=== PATIENT | male | born 1970 | race Caucasian/White ===

== ENCOUNTER 2018-07-01 18:29 | Observation (INO) | payer OTHER ==
[~2018-07-01] VITALS: Ht 193 cm; Wt 113.4 kg
--- NOTE | ~2018-07-01 | EC ---
PATIENT:ALEXANDRA LINARES DATE OF SERVICE: 07/01/18 SEX: M MEDICAL RECORD: [id number] DATE OF : [birth year] LOCATION:D. D.213 AGE OF PATIENT: 48 ADMISSION DATE: 07/01/18 REFERRING PHYSICIAN: INTERPRETING PHYSICIAN: DANIELA CABRAL MD ECHOCARDIOGRAM REPORT ECHO CHARGES 4 ECHO COMPLETE Date: 07/02/18 CLINICAL DIAGNOSIS: SYNCOPE ECHOCARDIOGRAPHIC MEASUREMENTS (adult normal given) AC root (d.<3.7cm) 3.3 cm LV Septum d (<1.2 cm> 1.3 cm Valve Excursion 2.3 cm LV Septum (systole) 1.7 cm Left Atria (s.<4.0cm> 3.6 cm LVPW d(<1.2cm) 1.3 cm RV (d.<2.3cm) 3.1 cm LVPW (sytole) 2.0 cm LV diastole(<5.6CM) 5.2 cm MV E-F(>70mm/sec) cm LV systole 3.4 cm LVOT Diameter 2.0 cm MV exc.(>10mm) cm Est.ejection fraction (50-75%) % DOPPLER: LVIT cm/sec A 48.0 cm/sec E 76.0 cm/sec LA cm/sec RVSP 48.1 mmHg LVOT 119 cm/sec AOP1/2T m/s Asc. Ao 136 cm/sec RVOT 59.0 cm/sec RA cm/sec PA 98.0 cm/sec AV Gradient Peak 7.4 mmHg AV Mean 3.8 mmHg AV Area 2.7 cm MV Gradient Peak 3.6 mmHg MV Mean 1.5 mmHg MV Area cm COMMENTS: Electrical Test Engineer: 1 KATHRYN GUADALUPE Option Trader: 2 Dr. Russlel TAPE# PACS Pericardial Effusion N DATE OF SERVICE: 07/02/2018 PROCEDURE: Echocardiogram. FINDINGS: 1. Left ventricular chamber size is within normal limits. Left ventricular systolic function is normal. Overall ejection fraction estimated at 55% to 60%. 2. Left atrium is within normal limits at 3.6 cm. Right atrium and right ventricle chamber sizes are mildly dilated. 3. Valvular structures have normal structure and motion. ECHOCARDIOGRAM REPORT [id number] ALEXANDRA LINARES 4. Doppler interrogation reveals trace mitral regurgitation, moderate tricuspid regurgitation, no other valvular insufficiency or stenosis. Pulmonary systolic pressure is mildly elevated, estimated at 48 mmHg. 5. No evidence of pericardial effusion or left ventricular thrombus. TRANSINT:[id number] Voice Confirmation ID: [id number] DOCUMENT ID: [id number] DANIELA CABRAL MD at 1856 CC: [id number] DICTATION DATE: 07/02/18 1415 SLUBBER FRAME CHANGER: 07/02/18 1552 ADM IN [facility] [address] [id number]
--- NOTE | ~2018-07-01 | MORECARE ---
CASE MANAGEMENT DISCHARGE SUMMARY PATIENT: ALEXANDRA LINARES UNIT: [id number] ADM DATE: 07/01/18 AGE: 48 : 72 SEX: M ROOM/BED: D.2137 AUTHOR: JENNI ERNANDEZ PHYSICIAN: REFERRING PHYSICIAN: ANDREWS ROCKWELL MD DATE OF SERVICE: 07/05/18 Discharge Plan Patient Name: ALEXANDRA LINARES Facility: [facility]:[place]lie : 1970 Planned Disposition: Home Anticipated Discharge Date: 07/03/18 Discharge Date: 07/03/2018 Expected LOS: 2 Initial Reviewer: [id number] Initial Review Date: 07/05/2018 Generated: 07/05/18 10:48 am Patient Name: ALEXANDRA LINARES Page [id number] at 0948 All edits/amendments must be made on the electronic document DICTATION DATE: 07/05/18946 SIGN POSTER: DEJUAN 07/05/18946 RPT#: [id number] DC DATE:07/03/18 STATUS: DIS IN [facility] [address] [place] [address] END OF REPORT
[2018-07-01 19:19] LABS: BASOPHILS 0.3 % (0-2); EOSINOPHILS 1.6 % (0-7); HEMOGLOBIN 14.4 g/dL (13.5-17.5); IMMATURE GRANULOCYTES 0.3 % (0-5); LYMPHOCYTES 21.3 % (15-50); MCH 28.8 pg (26.0-34.0); MCHC 33.5 g/dL (31.0-37.0); MEAN PLATELET VOLUME 10.5 fL (7.4-10.4); MONOCYTES 9.7 % (2-11); NEUTROPHILS 66.8 % (40-80); PLATELET COUNT 217 10x3/uL (130-400); RDW 13.1 % (11.5-14.5); WBC 8.6 10x3/uL (4.8-10.8)
[2018-07-01 19:48] LABS: ALBUMIN 3.4 g/dL (3.4-5.0); ALKALINE PHOSPHATASE 65 U/L (46-116); ALT (SGPT) 29 U/L (10-68); BILIRUBIN - TOTAL 2.03 mg/dL (0.2-1.3); CALC OSMOLALITY 265 mosm/kg (275-300); CALCIUM 8.3 mg/dL (8.5-10.1); CARBON DIOXIDE 25.7 mmol/L (21.0-32.0); CHLORIDE - SERUM 99 mmol/L (98-107); CREATININE - SERUM 1.4 mg/dL (0.6-1.3); GLUCOSE 113 mg/dL (74-106); POTASSIUM - SERUM 3.6 mmol/L (3.5-5.1); PROTEIN - SERUM 7.5 g/dL (6.4-8.2); SODIUM 132 mmol/L (136-145); UREA NITROGEN 13 mg/dL (7-18); eGFR NON AFRICAN AMERICAN 58 mL/min (90-120)
[2018-07-01 19:54] LABS: APTT 25.8 SECONDS (22.8-39.4); INR 1.02 (0.85-1.17); PROTIME 13.1 SECONDS (11.6-15.0)
[2018-07-01 19:58] LABS: CKMB 2.4 U/L (0.0-3.6); CREATINE KINASE 556 UL (21-232); TROPONIN-I < 0.017 ng/mL (0.000-0.060)
[2018-07-01 21:02] VITALS: BP 111/61
[2018-07-01 22:03] VITALS: BP 111/65
[2018-07-01 22:08] LABS: APPEARANCE CLEAR (CLEAR); BILIRUBIN NEGATIVE (NEGATIVE); COLOR YELLOW (YELLOW); GLUCOSE NEGATIVE (NEGATIVE); KETONE NEGATIVE (NEGATIVE); NITRITE NEGATIVE (NEGATIVE); PROTEIN TRACE mg/dL (NEGATIVE); UROBILINOGEN NORMAL (NORMAL)
[2018-07-01 22:11] LABS: BACTERIA FEW /hpf (NONE SEEN); EPITHELIAL CELLS RARE /hpf (0-5); RED CELLS - URINE 0-5 /hpf (0-5); WHITE CELLS - URINE RARE /hpf (0-5)
[2018-07-01 23:39] VITALS: BP 111/71
[2018-07-02 00:03] VITALS: BP 124/76
[2018-07-02 04:00] VITALS: BP 127/72
[2018-07-02 04:14] VITALS: BP 118/69; BMI 29.8
[2018-07-02 05:56] LABS: BASOPHILS 0.4 % (0-2); EOSINOPHILS 3.2 % (0-7); HEMATOCRIT 38.9 % (42.0-54.0); HEMOGLOBIN 13.8 g/dL (13.5-17.5); IMMATURE GRANULOCYTES 0.6 % (0-5); LYMPHOCYTES 36.8 % (15-50); MCH 31.2 pg (26.0-34.0); MCHC 35.5 g/dL (31.0-37.0); MCV 87.8 fL (80.0-100.0); MEAN PLATELET VOLUME 10.6 fL (7.4-10.4); MONOCYTES 14.4 % (2-11); NEUTROPHILS 44.6 % (40-80); PLATELET COUNT 179 10x3/uL (130-400); RBC 4.43 10x6/uL (4.20-6.10); RDW 13.1 % (11.5-14.5)
[2018-07-02 05:57] LABS: WBC 5.1 10x3/uL (4.8-10.8)
[2018-07-02 06:34] LABS: ANION GAP 9.7 mmol/L (8-16); BILIRUBIN - TOTAL 1.49 mg/dL (0.2-1.3); CALCIUM 7.8 mg/dL (8.5-10.1); CARBON DIOXIDE 27.8 mmol/L (21.0-32.0); CREATININE - SERUM 1.3 mg/dL (0.6-1.3); POTASSIUM - SERUM 3.5 mmol/L (3.5-5.1); PROTEIN - SERUM 6.8 g/dL (6.4-8.2)
[2018-07-02 08:05] VITALS: BP 104/74
[2018-07-02 11:52] VITALS: BP 116/77
[2018-07-02 13:01] VITALS: Ht 193 cm; Wt 113.4 kg
[2018-07-02 13:54] LABS: CKMB 1.5 U/L (0.0-3.6)
[2018-07-02 13:55] LABS: CREATINE KINASE 360 UL (21-232); TROPONIN-I < 0.017 ng/mL (0.000-0.060)
[2018-07-02 18:41] LABS: CKMB 1.5 U/L (0.0-3.6); CREATINE KINASE 310 UL (21-232)
[2018-07-02 18:48] LABS: TROPONIN-I < 0.017 ng/mL (0.000-0.060)
[2018-07-02 21:08] VITALS: BP 120/68
[2018-07-03] VITALS: BP 101/48
[2018-07-03 01:11] LABS: CKMB 1.1 U/L (0.0-3.6); CREATINE KINASE 300 UL (21-232)
[2018-07-03 01:14] LABS: TROPONIN-I < 0.017 ng/mL (0.000-0.060)
[2018-07-03 04:00] VITALS: BP 112/75
[2018-07-03 06:35] LABS: BASOPHILS 0.5 % (0-2); EOSINOPHILS 3.2 % (0-7); HEMATOCRIT 41.9 % (42.0-54.0); HEMOGLOBIN 13.9 g/dL (13.5-17.5); IMMATURE GRANULOCYTES 0.3 % (0-5); LYMPHOCYTES 32.9 % (15-50); MCH 28.7 pg (26.0-34.0); MCHC 33.2 g/dL (31.0-37.0); MCV 86.6 fL (80.0-100.0); MEAN PLATELET VOLUME 10.8 fL (7.4-10.4); MONOCYTES 14.5 % (2-11); NEUTROPHILS 48.6 % (40-80); PLATELET COUNT 205 10x3/uL (130-400); RBC 4.84 10x6/uL (4.20-6.10); RDW 12.8 % (11.5-14.5); WBC 5.9 10x3/uL (4.8-10.8)
[2018-07-03 07:03] LABS: ALBUMIN 3.2 g/dL (3.4-5.0); ANION GAP 9.3 mmol/L (8-16); BILIRUBIN - TOTAL 0.81 mg/dL (0.2-1.3); CALCIUM 8.8 mg/dL (8.5-10.1); CARBON DIOXIDE 29.5 mmol/L (21.0-32.0); CREATININE - SERUM 1.2 mg/dL (0.6-1.3); MAGNESIUM - SERUM 2.1 mg/dL (1.8-2.4); POTASSIUM - SERUM 3.8 mmol/L (3.5-5.1); PROTEIN - SERUM 7.1 g/dL (6.4-8.2)
[2018-07-03 08:34] VITALS: BP 120/77
[2018-07-03] MEDS ORDERED: KEFLEX500 MG PO (10:34)
== END 2018-07-03 11:41 | disposition home or self-care (01) ==
LOC: D.ER 18:29 → D.M2 21:48 → D.EDHOLD 21:48 → D.M2 22:26 → OBSVTIME 07-03 11:30 → D.M2 07-03 11:41
PROVIDERS: Emergency Medicine; Family Medicine
DX: R55 Syncope and collapse (principal); R19.7 Diarrhea, unspecified; R50.9 Fever, unspecified; M54.5 Low back pain; G89.29 Other chronic pain